=== PATIENT | female | born 1970 | race Caucasian/White ===

== ENCOUNTER 2024-09-16 06:21 | Day surgery (SDC) | payer OTHER, SELFPAY | END 2024-09-16 15:39 | disposition home or self-care (01) | LOC: GI 06:21 | PROVIDERS: ATTENDING PHYSICIAN Specialist | DX: Z12.11 Encounter for screening for malignant neoplasm of colon (principal); R19.5 Other fecal abnormalities; K55.20 Angiodysplasia of colon without hemorrhage; D12.0 Benign neoplasm of cecum; D12.4 Benign neoplasm of descending colon; D12.8 Benign neoplasm of rectum; K63.5 Polyp of colon; K62.1 Rectal polyp | CPT/HCPCS: 45385; 45380; 88305 ==

== ENCOUNTER 2024-11-07 12:37 | Emergency (ER) | payer OTHER, SELFPAY ==
[2024-11-07 12:51] VITALS: BP 148/90
[2024-11-07 13:11] VITALS: BMI 30.6
--- NOTE | 2024-11-07 13:36 | ED.GENMED ---
History of Present Illness
General
Chief Complaint: Skin Problem
Time Seen by Provider: 11/07/24 13:24
History of Present Illness
History of Present Illness:
54-year-old female with no significant past medical history presents the emergency department for evaluation of left breast pain and discomfort beginning this morning. Denies any known trauma to the area. Denies fevers, chills, sweats, or axillary
pain. No nipple discharge.
Past History
Past History
ED Past Medical History: None; Negative HTN, Hypercholesterolemia or NIDDM
ED Past Surgical History: None
Social History
Tobacco: Smoker
Alcohol: Occasional
Personal:
Living: with family
Review of Systems
Review of Systems
Allergies reviewed?: Yes
All Other Systems: ROS reviewed and negative except as documented in HPI and ROS
Phy Exam
Physical Exam
Physical Exam:
GEN: Well appearing, NAD, WDWN
HEENT: Oral mucosa moist, no scleral icterus
Cardiac: Regular rate
Lung: No respiratory distress, no tachypnea
Breast: Mild erythema of the left inner lower quadrant of the breast with no palpable induration or firmness, no nipple discharge, no axillary adenopathy
MSK: No gross deformity or injuries
Skin: Good color, no pallor or jaundice, no rashes
Neuro: AO x3, moves all extremities freely
Psych: Calm, cooperative
Course
Vital Signs
Initial and Last Documented VS:
Initial Vital Signs
Temp Pulse Resp BP Pulse Ox
98.3 F 83 20 148/90 99
11/07/24 12:51 11/07/24 12:51 11/07/24 12:51 11/07/24 12:51 11/07/24 12:51
Last Documented Vital Signs
Temp Pulse Resp BP Pulse Ox
98.3 F 83 20 148/90 99
11/07/24 12:51 11/07/24 12:51 11/07/24 12:51 11/07/24 12:51 11/07/24 12:51
MDM/Problems Addressed
MDM/Problems Addressed:
Likely developing mild breast cellulitis, no palpable abscess or ductal dilation; No indication for imaging at this time. Encourage patient to follow-up for diagnostic breast ultrasound and/or mammogram if symptoms do not resolve with antibiotics
*Pulse Oximetry
Patient hypoxic: no
Comment: 99% room air
*Critical Care Note
Total Time (30-74mins, 75-104mins- exclusive of procedures): Not Applicable
ED Attending Note
-
Portions of this chart may have been created with voice recognition software.� Occasional wrong word or��sound alike� substitutions may have occurred due to the inherent limitations of voice recognition software.
Discharge Plan
Departure
Patient Disposition: Home (Routine Discharge)
Date of Disposition: 11/07/24
Time of Disposition: 13:37
Patient with high blood pressure during this ER visit?: No
Discharge Problem:
Cellulitis of left breast
Instructions: Cellulitis (Skin Infection), Adult (DC)
Prescriptions:
New
cephalexin 500 mg capsule
500 mg PO Q8H 7 Days Qty: 21 0RF
No Action
prednisone 50 MG tablet
50 mg PO DAILY Qty: 5 0RF
albuterol sulfate [Proventil HFA] 90 MCG/PUFF HFA aerosol inhaler
1 puff inhalation Q4HPRN PRN (Reason: shortness of breath) Qty: 0 0RF
Interventions
Interventions:
*Risk Screen - Suicide Last Done: 11/07/24 12:51
*General Assessment Last Done: 11/07/24 12:51
*Neglect/Abuse Screening Last Done: 11/07/24 12:51
*ED- Fall Risk Assessment Last Done: 11/07/24 13:11
*ED COVID-19 Vaccine History Last Done: 11/07/24 13:11
*Nursing Disposition Last Done: 11/07/24 13:47
ED-Skin Assessment Last Done: 11/07/24 13:11
Discharge Date and Time
Discharge Date/Time: 11/07/24 13:48
Print Language: JAPANESE
== END 2024-11-07 13:48 | disposition home or self-care (01) ==
LOC: EMR 12:37
PROVIDERS: EMERGENCY PHYSICIAN Emergency Medicine; FAMILY PHYSICIAN Family Medicine
DX: N61.0 Mastitis without abscess (principal); F17.200 Nicotine dependence, unspecified, uncomplicated
CPT/HCPCS: 99283

== ENCOUNTER → 2024-12-03 07:15 | Outpatient (REF) | payer OTHER, SELFPAY | LOC: WDC 07:15 | PROVIDERS: ATTENDING PHYSICIAN Family Medicine | DX: Z12.31 Encounter for screening mammogram for malignant neoplasm of breast (principal); Z12.39 Encounter for other screening for malignant neoplasm of breast; N64.4 Mastodynia | CPT/HCPCS: 76642; 77063; 77067 ==

== ENCOUNTER → 2025-02-22 09:43 | Outpatient (REF) | payer OTHER, SELFPAY | LOC: HWRAD 09:43 | PROVIDERS: ATTENDING PHYSICIAN Family Medicine | DX: N95.0 Postmenopausal bleeding (principal) | CPT/HCPCS: 76830; 76856 ==